=== PATIENT | female | born 1985 | race Two or more races ===

== ENCOUNTER 2019-05-12 22:15 | Emergency (ER) | payer SELFPAY ==
[~2019-05-12] VITALS: Ht 154.9 cm; Wt 56.7 kg
[2019-05-12] MEDS ORDERED: Neosporin Oint Ud Pkt TOPIC ONE (23:00)
[2019-05-12] MEDS ORDERED: Tetanus/Diptheria/Pertussis IM ONE (23:00)
--- NOTE | 2019-05-12 23:05 | Emergency Room Report ---
History of Present Illness General Chief Complaint: Laceration Source: Patient, Medical Record Present Illness HPI This is a 34-year-old female with no past medical history. She is right-hand dominant. She presents with chief complaint of her right elbow laceration. There was an open metal canister. She was in the kitchen and she turned around and sliced her right elbow. No nausea no vomiting. No fever chills. Denies any other complaint. Minimal pain. Tetanus unknown. Allergies: Coded Allergies: No Known Allergies (Unverified , 05/12/19) Patient History Past Medical History: see triage record, old chart reviewed Past Surgical History: none Pertinent Family History: none Social History: Denies: smoking Last Menstrual Period: 05/2019 Now: No Immunizations: other Reviewed Nursing Documentation: PMH: Agreed; PSxH: Agreed Nursing Documentation-PMH Past Medical History: No Stated History Review of Systems Eye: Denies: eye pain, blurred vision ENT: Denies: ear pain, nose congestion, throat swelling Respiratory: Denies: cough, shortness of breath Cardiovascular: Denies: chest pain, palpitations Gastrointestinal: Denies: abdominal pain, diarrhea, nausea, vomiting Musculoskeletal: Denies: back pain, joint pain Skin: Denies: rash Neurological: Denies: headache, numbness Endocrine: Denies: increased thirst, increased urine Hematologic/Lymphatic: Denies: easy bruising All Other Systems: negative except mentioned in HPI Physical Exam Vital Signs Date Time Temp Pulse Resp B/P (MAP) Pulse Ox O2 Delivery O2 Flow Rate FiO2 05/12/19 22:39 98.4 77 18 113/73 (86) 97 Room Air Vitals normal Sp02 EP Interpretation: reviewed, normal General Appearance: well appearing, no apparent distress, alert Head: normocephalic, atraumatic Eyes: bilateral eye PERRL, bilateral eye EOMI ENT: hearing grossly normal, normal pharynx Neck: full range of motion, supple, no meningismus Respiratory: chest non-tender, lungs clear, normal breath sounds Cardiovascular #1: regular rate, rhythm, no murmur Gastrointestinal: normal bowel sounds, non tender, no mass, no organomegaly, no bruit, non-distended Musculoskeletal: back normal, gait/station normal, normal range of motion, other - Right elbow: Over the olecranon process, there is a 3 cm laceration. Full range of motion. No foreign body. No tendon involvement. Psychiatric: mood/affect normal Procedures Laceration/Wound Repair Laceration/Wound Repair : Consent: Verbal Wound Location: upper extremity Wound's Depth, Shape: linear, flap Wound Length (cm): 3 Wound Explored: clean Irrigated w/ Saline (ccs): 1000 Anesthesia: 1% Lidocaine Volume Anesthetic (ccs): 4 Wound Repaired With: sutures Suture Size/Type: 4:0, proline Number of Sutures: 5 Sterile Dressing Applied?: Yes Patient Tolerated: Well Complications: None Medical Decision Making Diagnostic Impression: Primary Impression: Laceration ER Course Patient with elbow laceration. No fracture dislocation. No Foreign body. No tendon involvement. Will discharge home. Last Vital Signs Date Time Temp Pulse Resp B/P (MAP) Pulse Ox O2 Delivery O2 Flow Rate FiO2 05/12/19 22:39 98.4 77 18 113/73 (86) 97 Room Air Status: improved Disposition: HOME, SELF-CARE Condition: Stable Patient Instructions: Laceration Care, Adult Additional Instructions: Keep wound clean. Apply antibiotic ointment. Follow-up with your doctor in 7 to 10 days for suture removal. Return if worse. Naren Nieves MD May 12, 2019 23:05
[2019-05-12 23:40] VITALS: BP 116/75
== END 2019-05-12 23:40 | disposition home or self-care (01) ==
LOC: EMR 23:00
DX: S51.011A Laceration without foreign body of right elbow, initial encounter (principal); X58.XXXA Exposure to other specified factors, initial encounter; Y92.9 Unspecified place or not applicable; Z23 Encounter for immunization
CPT/HCPCS: 90471; 90715; 99283